=== PATIENT | female | born 2000 | race American Indian/Alaskan Native ===

== ENCOUNTER 2020-12-05 08:00 | Outpatient (CLI) | payer OTHER | END 2020-12-05 08:30 | disposition home or self-care (01) | LOC: PPH VACUNA 08:00 | DX: Z23 Encounter for immunization (principal) ==

== ENCOUNTER → 2021-10-17 | Emergency (ER) | payer OTHER ==
[~2021-10-17] VITALS: Ht 165.1 cm; Wt 66.7 kg
== END | disposition left against medical advice (07) ==
LOC: ER 15:46
DX: Z53.21 Procedure and treatment not carried out due to patient leaving prior to being seen by health care provider (principal)

== ENCOUNTER 2021-11-22 08:45 | Emergency (ER) | payer OTHER ==
[~2021-11-22] VITALS: Ht 165.1 cm; Wt 59.0 kg
== END 2021-11-22 13:34 ==
LOC: ER 08:45
DX: M54.9 Dorsalgia, unspecified (principal); D64.9 Anemia, unspecified; R59.9 Enlarged lymph nodes, unspecified; F41.9 Anxiety disorder, unspecified

== ENCOUNTER 2025-04-04 16:39 | Emergency (ER) | payer OTHER ==
[~2025-04-04] VITALS: Ht 152.4 cm; Wt 63.5 kg
[2025-04-04 20:47] LABS: BASO % 0.7 % (0.1-1.2); EOS # 0.25 (0.04-0.54); EOS % 2.9 % (0.7-7.0); LYMPH # 2.00 (1.18-3.74); LYMPH % 22.9 % (19.3-53.1); MEAN PLATELET VOLUME 9.40 fl (9.4-12.4); MONO # 0.53 (0.24-0.82); MONO % 6.1 % (4.7-12.5); NEUT # 5.89 (1.56-6.13); NEUT % 67.2 % (34.0-71.1); RED CELL DISTRIBUTION WIDTH 13.4 % (11.6-14.4)
[2025-04-04 21:19] LABS: INR 0.99
[2025-04-04 21:30] LABS: ALT/SGPT 31.0 U/L (12-78); AST/SGOT 22.0 U/L (15-37); BILIRUBIN TOTAL 0.39 mg/dL (0.3-1.2); BUN CREA RATIO 14.0 (7.0-25.0); CREATININE SERUM 0.64 mg/dL (0.55-1.02); GFR 112.17; GLOBULINA 3.7 G/DL (2.4-3.5); GLUCOSE FASTING 94.0 mg/dL (65-100); HCG QUANTITATIVE 2.0 mUI/mL (1-3); OSMOLALITY SERUM 278.0 MOSM/KG (275-295)
== END 2025-04-04 22:54 | disposition home or self-care (01) ==
LOC: ER 16:39
PROVIDERS: General Practice
DX: N93.8 Other specified abnormal uterine and vaginal bleeding (principal)